=== PATIENT | female | born 2000 | race Native Hawaiian/Other Pacific Islander ===

== ENCOUNTER 2022-04-24 01:25 | Inpatient (IN) | payer OTHER, SELFPAY ==
[2022-04-23 23:58] VITALS: BP 136/75; PULSE 63
[2022-04-23 23:59] VITALS: TEMP 36.7
[2022-04-24] VITALS (49 sets, daily range): BP systolic 99–142; BP diastolic 53–86; PULSE 49–99; RESP 16; TEMP 36.4–36.9; O2SAT 91–100; BMI 24.3
--- NOTE | 2022-04-24 02:37 | PM.OBHPLI ---
OB - H&P: HPI Labor/Induction History of Present Illness Time Seen by Provider: 02:39 Date Seen: 04/24/22 Chief Complaint: The patient is a 21 year old 4 para 2 at 38w3d weeks gestation by 8 week ultrasound, who presents with contractions. Chief complaint: Maternity : 4 Para: 2 Narrative: Alla Craft is a 21 year old female who presents with contractions. Patient states that her contractions started last evening around 8pm. She arrived at labor and delivery a few hours later and was 4 cm. She was monitored and changed to 5 cm. Contractions are increasing in intensity. History of Present Dating criteria: based on 1st trimester US only care: good care Ultrasounds: normal 1st trimester US and normal mid trimester US Abnormal ultrasound findings: Normal ultrasound at 8 weeks 6 days for dating anatomy screen showed incomplete visualization of spine due to position. Remainder of the anatomic survey is normal. Unfortunately, repeat ultrasound was delayed and spine was never able to be evaluated fully. Placenta is anterior without evidence for placenta previa. Medical complications: musculoskeletal Narrative: Patient has reactive arthritis, on plaquenil Labs Blood type: A (+) positive Rubella: immune RPR/VDLR: nonreactive GBS status: negative HBsAG: negative Review of Systems Status of ROS: Reports: 10 or more systems reviewed and unremarkable except as noted in History and below Meds Home Medications and Allergies Home Medications Medication Instructions Recorded Confirmed Type ferrous sulfate 325 mg (65 mg mg PO 04/23/22 History iron) tablet,delayed release fluoxetine 20 mg capsule 60 mg PO DAILY 04/23/22 04/23/22 History hydroxychloroquine 200 mg tablet 200 mg PO DAILY 04/23/22 04/23/22 History (Plaquenil) vit no.95-ferrous 1 tab PO DAILY 04/23/22 04/23/22 History fumarate 28 mg-folic acid 800 mcg tablet () Allergies Allergy/AdvReac Type Severity Reaction Status Date / Time Cephalex Allergy Rash Uncoded 04/23/22 23:50 OB - H&P: Exam Physical Exam: Vital signs: Temp Pulse BP 98.1 F 69 109/64 04/23/22 23:59 04/24/22 02:00 04/24/22 02:00 Constitutional: Constitutional: no acute distress Comments: uncomfortable appearing with contractions Routine HEENT Exam: Head: Present atraumatic, normal inspection and normocephalic Routine Neck Exam: Neck: Present full ROM Routine Respiratory Exam: Respiratory: Present CTA bilaterally Routine Cardiovascular Exam: Cardiovascular: RRR, S1 and S2 Routine Abdominal Exam: Abdominal: Present normal bowel sounds Detailed Labor and Delivery Exam: Patient Gravid: yes Dilation (cm): 5 Comments: 5 cm per nursing, 0 station Routine Extremities Exam: Extremities: Present full ROM and normal inspection Routine Skin Exam: Present intact Routine Neurological Exam: Present alert and oriented X3 Routine Psychiatric Exam: Present normal affect OB - Problem Based A/P Additional Plan (1) Term : Status: Acute (2) Depression: Status: Acute Plan: Patient has been on prozac, doing well during this Plan Patient is admitted in active labor, Expectant management. GBS negative. History of vaginal delivery x 2. plans on unmedicated delivery. Delivery/Labor/Induction Plan Plan: expectant management
[2022-04-24 02:49] LABS: SARS PCR* Negative SARS-CoV-2 (Negative)
[2022-04-24] MEDS: LACTATED RINGERS 1000 ML 1,000 ML 999 ML IV ×2 (05:59→07:07)
[2022-04-24] MEDS: ONDANSETRON 2 MG/ML inj 4 MG IV ×2 (05:59→09:02)
--- NOTE | 2022-04-24 06:48 | PM.ANBPRC ---
[facility], [facility] Medical History (Updated 04/24/22 @ 02:52 by Paulina Landry MD) LM positive Depression Inflammatory arthritis Vaginal delivery Family History (Updated 04/24/22 @ 02:49 by Paulina Landry MD) Mother Lupus (systemic lupus erythematosus) Social History Smoking Status: Never smoker Meds Home Medications and Allergies Home Medications Medication Instructions Recorded Confirmed Type ferrous sulfate 325 mg (65 mg mg PO 04/23/22 History iron) tablet,delayed release fluoxetine 20 mg capsule 60 mg PO DAILY 04/23/22 04/23/22 History hydroxychloroquine 200 mg tablet 200 mg PO DAILY 04/23/22 04/23/22 History (Plaquenil) vit no.95-ferrous 1 tab PO DAILY 04/23/22 04/23/22 History fumarate 28 mg-folic acid 800 mcg tablet () Allergies Allergy/AdvReac Type Severity Reaction Status Date / Time Cephalex Allergy Rash Uncoded 04/23/22 23:50 Results Labs Labs: Laboratory Results - last 24 hr 04/24/22 01:40 SARS-CoV-2 (PCR) Negative SARS-CoV-2 Vital Signs Vital Signs: Last Vital Signs Temp 98.1 F 04/24/22 03:13 Pulse 55 L 04/24/22 06:47 Resp 16 04/24/22 03:13 BP 104/54 L 04/24/22 06:47 Pulse Ox 100 04/24/22 06:44 Anesthesia Procedures Intrathecal Patient Location: OB Start Time: 06:00 Stop Time: 07:00 Start Date: 04/24/22 Stop Date: 04/24/22 Reason for Block: primary anesthetic Patient Position: sitting Performed By: Eddi Salcido Preanesthetic Checklist: IV checked, risks and benefits discussed, timeout performed and anesthesia consent Prep: chlorhexidine gluconate Monitoring: blood pressure monitoring, environmental monitoring specialist, continuous pulse oximetry and heart rate Approach: midline Vertebral Space: lumbar (1-5) Needle Type: Pencan Injection Technique: single-shot Needle gauge: 25 Needle Length (cm): 10 cm Events: cerebrospinal fluid
--- NOTE | 2022-04-24 07:02 | PM.OBPNL ---
Subjective Time Seen by Provider: 07:02 Date Seen: 04/24/22 Objective Exam: Resting comfortably after ITN placement. Vital Signs: Last Vital Signs Temp 98.1 F 04/24/22 03:13 Pulse 55 L 04/24/22 07:01 Resp 16 04/24/22 03:13 BP 103/55 L 04/24/22 07:01 Pulse Ox 100 04/24/22 06:59 Pelvic Exam Dilation (cm): 8 Effacement (%): 80 Station: 0 Contractions Monitor mode: External Contraction pattern: Regular Contraction intensity: Moderate Assessment Assessment: active labor Station: 0 Status: Category l Heart Rate Baseline: 135 Jacqu[address] [employer] Variability: Moderate (6-25) Monitor Accelerations: Present Monitor Decelerations: None Plan Plan: Patent has had slow progression overnight. Doing well. Just received ITN and resting comfortably. Continue expectant management, consider AROM.
--- NOTE | 2022-04-24 07:40 | SUR.ANES ---
medications for ITN placed 04/24/22 at 0630 were 0.8 mg 0.75% marcaine with 20 mcg of fentanyl. CKochSIOBHANNA
[2022-04-24] MEDS: OXYTOCIN 30 unit/500 ML in NS 30 UNIT/500 ML BAG 300 UNIT IVPB (09:20)
--- NOTE | 2022-04-24 09:43 | PM.OBPRCVD ---
Procedure Delivery date: 04/24/22 Procedure Done: Global Procedure Details: Delivery monitor: external FHT Route of delivery: Laceration description: None Estimated blood loss (mL): 25 Anesthesia type: ITN Disposition: floor Complications: none Narrative: Patient was admitted evening of 04/23 with labor. Went from 4-5 cm in triage assessment. Patient progressed without any intervention steadily overnight. Active labor began at 0108 on 04/24. She used nitrous for pain control and then She received an ITN at 0641 with good pain control. She had SROM sometime in the hour after ITN placement with clear fluid. Patient became complete at 0740 on 04/24/22. Pushing started at 0748. Patient delivered a viable male infant at 0916 over intact perineum. Baby was delivered onto maternal abdomen. Cord was clamped x 2 after 30 seconds of delayed cord clamping and cut by Father of baby who was in attendance. Baby was stimulated and taken to warmer, please see resuscitation note for details. Pitocin was started after delivery of baby. Placenta delivered spontaneously at 0923. Evaluation of the perineum showed no significant laceration. Sponge count correct. QBL was 25 cc. Infant Gender: Male presentation: vertex Placental Delivery Description: Spontaneous Cord Description: 3 Vessels OB Vag Delivery Procedures Additional Procedures ECV: No Cook Catheter Insertion: No NST: No D&C: No Laceration Repair: No Tubal Ligation : No Other: No
[2022-04-24] MEDS: IBUPROFEN 600 MG TABLET PO ×2 (11:58→18:03)
[2022-04-24] MEDS: DOCUSATE SODIUM 100 MG CAPSULE PO (15:43)
[2022-04-24] MEDS: HYDROXYCHLOROQUINE 200 MG TABLET PO (15:43)
[2022-04-24] MEDS: FLUOXETINE HCL 20 MG CAPSULE PO (15:44)
[2022-04-24] MEDS: ACETAMINOPHEN 500 MG TABLET 1000 MG PO ×2 (15:45→21:34)
[2022-04-25] VITALS: BP 104/62; PULSE 73; RESP 16; TEMP 36.8; O2SAT 98
[2022-04-25] MEDS: IBUPROFEN 600 MG TABLET PO (00:19)
[2022-04-25 05:00] VITALS: BP 112/61; PULSE 69; RESP 16; TEMP 36.7
[2022-04-25 06:59] LABS: Hemoglobin* 9.7 gm/dL (12.0-16.0)
[2022-04-25] MEDS: HYDROXYCHLOROQUINE 200 MG TABLET PO (08:06)
[2022-04-25] MEDS: ACETAMINOPHEN 500 MG TABLET 1000 MG PO (08:07)
[2022-04-25] MEDS: FLUOXETINE HCL 20 MG CAPSULE PO (08:07)
[2022-04-25] MEDS: FERROUS SULFATE 325 MG TABLET PO (08:08)
[2022-04-25] MEDS: DOCUSATE SODIUM 100 MG CAPSULE PO (08:08)
[2022-04-25 08:30] VITALS: BP 100/63; PULSE 64; RESP 16; TEMP 36.7; O2SAT 98
--- NOTE | 2022-04-25 10:10 | PM.OBDSVD1 ---
DS: Providers Provider Date Seen: 04/25/22 Date of admission: 04/24/22 01:25 Primary care physician: Paulina Landry MD Admitting Clinician: Paulina Landry MD Attending Physician on discharge: Paulina Landry MD Date of Discharge: 04/25/22 Exam Const: Vital Signs, click to edit/add: Vital Signs - 24 hr 04/24/22 10:16 04/24/22 10:32 04/24/22 10:46 Temperature Pulse Rate 54 L 56 L 59 L Pulse Rate [Blood Pressure Cuff] Respiratory Rate Blood Pressure 135/72 128/75 128/80 Blood Pressure [Ri ght Arm] Pulse Oximetry Oxygen Delivery Me thod 04/24/22 11:01 04/24/22 11:16 04/24/22 13:32 Temperature Pulse Rate 56 L 56 L Pulse Rate [Blood Pressure Cuff] 67 Respiratory Rate 16 Blood Pressure 130/78 130/78 Blood Pressure [Ri ght Arm] 132/70 Pulse Oximetry Oxygen Delivery Me thod 04/24/22 10:16 04/24/22 10:31 04/24/22 10:46 Temperature Pulse Rate Pulse Rate [Blood Pressure Cuff] 54 L 56 L 59 L Respiratory Rate 16 16 16 Blood Pressure Blood Pressure [Ri ght Arm] 135/72 128/75 128/80 Pulse Oximetry Oxygen Delivery Me thod 04/24/22 11:01 04/24/22 11:16 04/24/22 16:20 Temperature 98.4 F 97.8 F Pulse Rate Pulse Rate [Blood Pressure Cuff] 56 L 56 L 79 Respiratory Rate 16 16 16 Blood Pressure Blood Pressure [Ri ght Arm] 130/78 130/78 99/63 Pulse Oximetry Oxygen Delivery Me thod Room Air 04/24/22 19:30 04/25/22 00:00 04/25/22 05:00 Temperature 98.1 F 98.2 F 98.1 F Pulse Rate Pulse Rate [Blood Pressure Cuff] 72 73 69 Respiratory Rate 16 16 16 Blood Pressure Blood Pressure [Ri ght Arm] 105/64 104/62 112/61 Pulse Oximetry 98 98 Oxygen Delivery Me thod Room Air Room Air Documenting provider has reviewed patient's vital signs: yes Common normals: no apparent distress General appearance: cooperative and comfortable Resp: Common normals: normal respiratory effort, no retractions, no use of accessory muscles and clear to auscultation bilaterally Auscultation: clear to auscultation bilaterally Cardio: Common normals: regular rate and regular rhythm Rate: regular rate Rhythm: regular rhythm Heart sounds: no murmurs GI: Common normals: Normal to inspection, nondistended, normoactive bowel sounds present : Uterus: 2/U and firm Lochia: scant Uterus palpation: uterus nontender Extremity: Common normals: normal to inspection and no pedal edema OB - DS: Summary Hospital Course Hospital Course: The patient is a 21 year old G 4 P 3 at 38 weeks, 3 days gestation that was admitted to the Center on 04/24/22 for PRIYANKA. She had an uncomplicated vaginal delivery. She delivered a viable male . She is bottle feeding. the patient has done well. Peripartum Data delivery method: Vaginal Laceration description: Vaginal - 2nd Degree Infant Gender: Male Infant Discharge Plan: Home Time Spent with Patient Time attestation: Total time spent providing and/or coordinating discharge services: Time spent: Less than 30 minutes Discharge Plan Discharge Disposition: Home, Self-Care Date of Admission: 04/24/22 01:25 Primary Care Provider: Paulina Landry Condition: Stable Anticipated Discharge Date/Time: 04/25/22 10:08 Discharge Medications: Continued fluoxetine 20 mg capsule 60 mg PO DAILY Label Comments: TAKE THREE CAPSULES BY MOUTH EVERY MORNING hydroxychloroquine [Plaquenil] 200 mg tablet 200 mg PO DAILY ferrous sulfate 325 mg (65 mg iron) tablet,delayed release (DR/EC) 325 mg PO DAILY Label Comments: TAKE ONE TABLET BY MOUTH ONCE DAILY WITH A MEAL. PNV cmb#95-ferrous fumarate-FA [] 28 mg iron- 800 mcg tablet 1 tab PO DAILY Discharge Orders: Discharge Order (Routine); Ordered 04/25/22 Ordered By: Robson Galicia Patient Education: Vaginal Delivery (DC) Additional Instructions: Nothing per vagina for 6 weeks Activity Level: Activity as Tolerated Discharge Diet: Regular Follow Up Appointments: Paulina Landry MD [Primary Care Provider] - (Schedule in 6 weeks) Forms: [facility] Info Inst[facility]
== END 2022-04-25 11:45 | disposition home or self-care (01) | DRG 560 ==
LOC: OB OUT 01:29 → OB 01:29
PROVIDERS: Admitting Provider Family Medicine; PCP Family Medicine; Visit Provider Family Medicine
DX: O99.344 Other mental disorders complicating childbirth (principal); F32.A Depression, unspecified; O70.1 Second degree perineal laceration during delivery; Z3A.38 38 weeks gestation of pregnancy; R76.0 Raised antibody titer; M06.4 Inflammatory polyarthropathy; Z37.0 Single live birth
CPT/HCPCS: 36415; 85018; 87635; 99213; A9270; J2405; J3010; J7120

== ENCOUNTER 2022-12-10 11:48 | Emergency (ER) | payer OTHER, SELFPAY ==
[2022-12-10 12:10] VITALS: BP 106/71; PULSE 67; RESP 16; TEMP 36.9; O2SAT 99
[2022-12-10] MEDS: ONDANSETRON ODT 4 MG TAB 8 MG PO (13:04)
[2022-12-10] MEDS: FAMOTIDINE 20 MG TABLET PO (13:05)
--- NOTE | 2022-12-10 13:07 | ED_ITS ---
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 She has been experiencing a couple of weeks of vague nausea and acid reflux and then 2 days of diarrhea and vomiting. Son has similar symptoms for the last 2 days as well. No fever. No blood in her stools, no blood in vomit. No significant history of alcohol use, does not smoke marijuana. She has not tried any medications to help with her symptoms. No history of acid reflux that has been known. She did tend to have nausea in her pregnancies. She reports that she uses Depo-Provera for contraception and is due for an injection soon but is certainly still up-to-date. Is not having any breakthrough bleeding. No trauma or injury. No abdominal pain. No gynecological changes. She is still urinating adequately and is not experiencing any dizziness. No hypotension or tachycardia noted in triage. Home medications are reviewed, Plaquenil, fluoxetine with no recent dose changes. Past medical history, surgical history reviewed. Prior obstetrical notes noted. ROS is notable for the GI symptoms as above only, otherwise denies times 12 systems. Related Data Home Medications Medication Instructions Recorded Confirmed ferrous sulfate 325 mg (65 mg 325 mg PO DAILY 04/23/22 12/10/22 iron) tablet,delayed release fluoxetine 20 mg capsule 60 mg PO DAILY 04/23/22 12/10/22 hydroxychloroquine 200 mg tablet 200 mg PO DAILY 04/23/22 12/10/22 (Plaquenil) vit no.95-ferrous 1 tab PO DAILY 04/23/22 04/23/22 fumarate 28 mg-folic acid 800 mcg tablet () Previous Rx's Medication Instructions Recorded famotidine 20 mg tablet 20 mg PO DAILY #20 tabs 12/10/22 ondansetron 4 mg disintegrating 4 mg PO Q6H PRN nausea and 12/10/22 tablet vomiting #10 tabs Allergies Allergy/AdvReac Type Severity Reaction Status Date / Time Cephalex Allergy Rash Uncoded 04/23/22 23:50 PFSH PFS Medical History Vaginal delivery ?O80 - Encounter for full-term uncomplicated delivery (ICD-10) Depression ?F32.A - Depression, unspecified (ICD-10) Inflammatory arthritis ?M19.90 - Unspecified osteoarthritis, unspecified site (ICD-10) LM positive ?R76.8 - Other specified abnormal immunological findings in serum (ICD-10) Family History Mother Lupus (systemic lupus erythematosus) Social History Smoking Status: Never smoker Exam Const: Vital Signs, click to edit/add: Vital Signs - 24 hr 12/10/22 12:10 Temperature 98.5 F Pulse Rate [Right Pulse Oximeter] 67 Respiratory Rate 16 Blood Pressure [Ri ght Upper Arm] 106/71 Pulse Oximetry 99 Oxygen Delivery Me thod Room Air Documenting provider has reviewed patient's vital signs: yes Common normals: no apparent distress General appearance: cooperative, comfortable and well kempt Other: Appears well-hydrated, well-nourished HENMT: Common normals: normocephalic Head and scalp: normocephalic Face and sinus: normal facial exam Mouth: oral and palatal mucosa normal Throat: posterior oropharynx normal Eye: Common normals: conjunctivae normal General eye: normal appearance of both eyes Conjunctiva: conjunctiva(e) normal Neck & C-Spine: Common normals: full ROM and no lymphadenopathy Resp: Common normals: normal respiratory effort, no use of accessory muscles and clear to auscultation bilaterally Effort & inspection: able to speak in complete sentences Auscultation: clear to auscultation bilaterally Cardio: Common normals: regular rate, regular rhythm, S1 normal heart sound, S2 normal heart sound and no murmurs Rate: regular rate Rhythm: regular rhythm Heart sounds: S1 normal and S2 normal GI: Common normals: Normal to inspection, nondistended, normoactive bowel sounds present, soft to palpation, non-tender, no hepatosplenomegaly and no masses Palpation: soft and no hepatosplenomegaly Psych: Appearance: well kempt Attitude: engaged Activity/motor behavior: appropriate eye contact Mood and affect: euthymic mood Insight: insight good Judgement: judgment good Skin: Common normals: no rashes or lesions noted General skin exam: no rashes or lesions noted Course Course Hospital Course: Son with similar gastroenteritis type symptoms. Suspect viral process. Abdominal exam is completely benign. No tachycardia or hypotension, no signs of dehydration. No reason suspect pancreatitis since there is no pain, no obstructive signs, gynecological signs or other worrisome features. I recommended a trial of both famotidine for a few weeks as she does have some ongoing symptoms and her suspicious for ongoing GERD. This would be especially common with her fluoxetine. But acutely will treat with Zofran, 1st dose will be given in ED. She may continue on this for the next couple of days as needed, push fluids. Alarm symptoms reviewed as indications to come back to ED. She w ill follow-up with the primary care doc if she is not getting better with her symptoms in a couple of weeks. Discussed Imodium if she continues to have any diarrhea. Vital Signs Vital signs: Initial Vital Signs Temperature 98.5 F 12/10/22 12:10 Temperature Source Temporal Artery Scan 12/10/22 12:10 Pulse Rate 67 12/10/22 12:10 Respiratory Rate 16 12/10/22 12:10 Blood Pressure 106/71 12/10/22 12:10 Blood Pressure Mean 82 12/10/22 12:10 Blood Pressure Position Sitting 12/10/22 12:10 Pulse Oximetry 99 12/10/22 12:10 Oxygen Delivery Method Room Air 12/10/22 12:10 Vital Signs Temperature 98.5 F 12/10/22 12:10 Pulse Rate 67 12/10/22 12:10 Respiratory Rate 16 12/10/22 12:10 Blood Pressure 106/71 12/10/22 12:10 Pulse Oximetry 99 12/10/22 12:10 Oxygen Delivery Method Room Air 12/10/22 12:10 Temperature 98.5 F 12/10/22 12:10 Pulse Rate 67 12/10/22 12:10 Respiratory Rate 16 12/10/22 12:10 Blood Pressure 106/71 12/10/22 12:10 Pulse Oximetry 99 12/10/22 12:10 Oxygen Delivery Method Room Air 12/10/22 12:10 Discharge Plan Discharge Clinical Impression: Gastroenteritis Patient Disposition: Home w/ Parent or Adult Condition: Stable Instructions: Gastroenteritis (DC) Additional Instructions: As we discussed, there are no signs that you are dehydrated, this is great news. Unfortunately if you keep having the vomiting and diarrhea, you can get dehydrated eventually. I have given you an anti nausea medicine known as Zofran. I will send an additional supply to your pharmacy. You may take this up to every 6 hours as needed. As we discussed, you may also use [id number] Imodium if you get more bouts of diarrhea but I would not take the Imodium as a preventative type medication. Based on your history that you have been struggling with some mild symptoms for a couple of weeks, I suspect you may also have some underlying gastric reflux. I would like for you to start on a stomach acid medicine known as famotidine for a couple of weeks and see how this improves her overall symptoms. I would follow up with her primary care doctor if it is not helping to discuss further options long-term. You also should address your updated control needs at your convenience as well. Activity Level: No Restrictions Discharge Diet: Regular Prescriptions: New famotidine 20 mg tablet 20 mg PO DAILY Qty: 20 0RF ondansetron 4 mg tablet,disintegrating 4 mg PO Q6H PRN (Reason: nausea and vomiting) Qty: 10 0RF No Action fluoxetine 20 mg capsule 60 mg PO DAILY Patient Comments: TAKE THREE CAPSULES BY MOUTH EVERY MORNING hydroxychloroquine [Plaquenil] 200 mg tablet 200 mg PO DAILY ferrous sulfate 325 mg (65 mg iron) tablet,delayed release (DR/EC) 325 mg PO DAILY Patient Comments: TAKE ONE TABLET BY MOUTH ONCE DAILY WITH A MEAL. PNV cmb#95-ferrous fumarate-FA [] 28 mg iron- 800 mcg tablet 1 tab PO DAILY Follow Up/Referrals: Paulina Landry MD [Primary Care Provider] - Stand Alone [facility]
== END 2022-12-10 13:15 | disposition home or self-care (01) ==
LOC: ED 12:59
PROVIDERS: Emergency Provider Family Medicine; PCP Family Medicine
DX: K52.9 Noninfective gastroenteritis and colitis, unspecified (principal)
CPT/HCPCS: 99283; A9270

== ENCOUNTER 2023-06-27 19:51 | Emergency (ER) | payer OTHER, SELFPAY ==
[2023-06-27 19:54] VITALS: BP 120/77; PULSE 76; RESP 16; TEMP 36.5; O2SAT 98; BMI 18.9
--- NOTE | 2023-06-27 20:08 | ED_ITS ---
HPI - General Adult General Date Seen: 06/27/23 <Ra Ricci MD - Last Filed: 06/28/23 00:15> Chief complaint: Psychiatric Problem/Disorder <Ra Ricci MD - Last Filed: 06/28/23 00:15> Stated complaint: Mental health <Ra Ricci MD - Last Filed: 06/28/23 00:15> Time Seen by Provider: 06/27/23 20:08 <Ra Ricci MD - Last Filed: 06/28/23 00:15> History of Present Illness HPI narrative: This is a 23-year-old female with a history of depression, also depression, who is . She struggled with depression since childhood. She notes that her depression is always gotten worse after she delivered her children, and she knows she has bad depression. As anticipated, after she delivered her 3rd child, last year (child is [id number] now) she had a significant deterioration in her depression. She was working with her primary care doctor for that. He she had been on 1 antidepressant but they put her on a 2nd antidepressant last spring. She felt like the combination meds was not helpful. She stopped them and was switched to a single agent last summer. She and her primary care doctor increased that dose to maximal but she was not getting any better. She gave up on meds and stop taking her medicine last November or December, about 5 or 6 months ago. She also saw a therapist for a few weeks last spring but did not find to be helpful so did not follow up. She has been experiencing fairly significant depression for the past several months. She has and he had only a, guilt, thoughts of wanting to . Lately she has also been thinking about self-harming. She has done some cutting in the past. She is also thinking about suicide in thinking about overdosing on pills. However she says she does not think she would actually ever do it because she knows she needs to be there as a mother for her children. She has not actually done anything to help herself yet. No clear recent trigger that his put her over the edge but she does endorse stress with her children, her , and her family. Tonight she was feeling so depressed, she knew she needs to do something before she would hurt herself, so she asked her father to bring her here to the ER. When I ask her why she came to the ER and what she was hoping to achieve, she says she thinks she probably needs to go to for inpatient therapy. She is interested in inpatient. <Ra Ricci MD - Last Filed: 06/28/23 00:15> Related Data Home medications: Home Medications Medication Instructions Recorded Confirmed ferrous sulfate 325 mg (65 mg 325 mg PO DAILY 04/23/22 06/27/23 iron) tablet,delayed release fluoxetine 20 mg capsule 60 mg PO DAILY 04/23/22 06/27/23 hydroxychloroquine 200 mg tablet 200 mg PO DAILY 04/23/22 06/27/23 (Plaquenil) vit no.95-ferrous 1 tab PO DAILY 04/23/22 06/27/23 fumarate 28 mg-folic acid 800 mcg tablet () metronidazole 500 mg tablet 500 mg PO BID 06/27/23 06/27/23 Previous Rx's Medication Instructions Recorded famotidine 20 mg tablet 20 mg PO DAILY #20 tabs 12/10/22 ondansetron 4 mg disintegrating 4 mg PO Q6H PRN nausea and 12/10/22 tablet vomiting #10 tabs escitalopram oxalate 10 mg tablet 10 mg PO DAILY #30 tabs 06/28/23 (Lexapro) <Ra Ricci MD - Last Filed: 06/28/23 00:15> Allergies/adverse reactions: Allergies Allergy/AdvReac Type Severity Reaction Status Date / Time Cephalex Allergy Rash Uncoded 04/23/22 23:50 <Ra Ricci MD - Last Filed: 06/28/23 00:15> [facility] Medical History: Medical History Vaginal delivery ?O80 - Encounter for full-term uncomplicated delivery (ICD-10) Depression ?F32.A - Depression, unspecified (ICD-10) Inflammatory arthritis ?M19.90 - Unspecified osteoarthritis, unspecified site (ICD-10) LM positive ?R76.8 - Other specified abnormal immunological findings in serum (ICD-10) <Ra Ricci MD - Last Filed: 06/28/23 00:15> Family History: Family History Mother Lupus (systemic lupus erythematosus) <Ra Ricci MD - Last Filed: 06/28/23 00:15> Social History: Social History Smoking Status: Never smoker How often do you have a drink containing alcohol: never AUDIT-C Alcohol total score: 0 Non-prescribed substance use: denies use <Ra Ricci MD - Last Filed: 06/28/23 00:15> Exam Narrative: Exam Narrative: Constitutional: Appears well-developed and well-nourished. Alert. Conversant. Non toxic. HENT: Head: Atraumatic. Nose: Nose normal. Mouth/Throat: Oral mucosa is clear and moist. no trismus. Pharynx normal. Tonsils symmetric. No tonsillar enlargement, erythema, or exudate. Eyes: Conjunctivae normal. EOM normal. Pupils equal, round, and reactive to ligh t. No scleral icterus. Neck: Normal range of motion. Neck supple. No tracheal deviation present. Cardiovascular: Normal rate, regular rhythm. No gallop. No friction rub. No murmur heard. Symmetric radial artery pulses Pulmonary/Chest: Effort normal. No stridor. No respiratory distress. No wheezes. No rales. No rhonchi . No tenderness. Abdominal: Soft. No distension. No mass. No tenderness. No rebound. No guarding. Musculoskeletal: RUE: Normal range of motion. No tenderness. No deformity LUE: Normal range of motion. No tenderness. No deformity RLE: Normal range of motion. No edema. No tenderness. No deformity LLE: Normal range of motion. No edema. No tenderness. No deformity Lymph: No cervical adenopathy. Neurological: Alert and oriented to person, place, and time. Normal strength. CN II-VII intact. No sensory deficit. GCS eye subscore is 4. GCS verbal subscore is 5. GCS motor subscore is 6. Normal coordination Skin: Very superficial scars on her left volar forearm from old cutting but no signs of any recent or acute guarding. Skin is warm and dry. No rash noted. No pallor. Normal capillary refill. Psychiatric: Flat affect. Very quiet voice. Somewhat slow speech. Looks down. At times tearful. Endorses depression, guilt, low energy. She is endorsing thoughts of self-harm including cutting and possibly suicide. She says she has thought about taking pills, since that would be easiest, has not actually gotten any pills to take. Says she has not overdosed on anything. She tried self medicating with marijuana gummies a few weeks ago but they only temporarily helped. She is not using them regularly and has not taken any for a couple of weeks. No other drugs or alcohol. She is confident she is not because she is currently menstruating. Her father is at her bedside. He is supportive and calm, however he is not fluid only bilingual so although he understands [place], he is not providing any extra history. <Ra Ricci MD - Last Filed: 06/28/23 00:15> Const: Vital Signs, click to edit/add: Vital Signs - 24 hr 06/27/23 19:54 06/27/23 23:00 06/28/23 03:00 Temperature 97.7 F 98.1 F Pulse Rate [Pulse Oximeter] 76 68 Respiratory Rate 16 16 15 Blood Pressure [Ri ght Upper Arm] 120/77 126/81 Pulse Oximetry 98 98 Oxygen Delivery Me thod Room Air Room Air 06/28/23 05:00 06/28/23 08:07 06/28/23 11:17 Temperature 97.6 F Pulse Rate [Pulse Oximeter] 81 68 Respiratory Rate 16 16 18 Blood Pressure [Ri ght Upper Arm] 111/75 125/68 Pulse Oximetry [facility] <Ra [facility] MD - Last Filed: 06/28/23 00:15> Vital Signs, click to edit/add: Vital Signs - 24 hr 06/27/23 19:54 06/27/23 23:00 06/28/23 03:00 Temperature 97.7 F 98.1 F Pulse Rate [Pulse Oximeter] 76 68 Respiratory Rate 16 16 15 Blood Pressure [Ri ght Upper Arm] 120/77 126/81 Pulse Oximetry 98 98 Oxygen Delivery Me thod Room Air Room Air 06/28/23 05:00 06/28/23 08:07 06/28/23 11:17 Temperature 97.6 F Pulse Rate [Pulse Oximeter] 81 68 Respiratory Rate 16 16 18 Blood Pressure [Ri ght Upper Arm] 111/75 125/68 Pulse Oximetry 98 Oxygen Delivery Me thod Room Air <Tal Torres MD - Last Filed: 07/01/23 15:49> Vital Signs, click to edit/add: Vital Signs - 24 hr 06/27/23 19:54 06/27/23 23:00 06/28/23 03:00 Temperature 97.7 F 98.1 F Pulse Rate [Pulse Oximeter] 76 68 Respiratory Rate 16 16 15 Blood Pressure [Ri ght Upper Arm] 120/77 126/81 Pulse Oximetry 98 98 Oxygen Delivery Me thod Room Air Room Air 06/28/23 05:00 06/28/23 08:07 06/28/23 11:17 Temperature 97.6 F Pulse Rate [Pulse Oximeter] 81 68 Respiratory Rate 16 16 18 Blood Pressure [Ri ght Upper Arm] 111/75 125/68 Pulse Oximetry 98 Oxygen Delivery Me thod Room Air <Walter Rodrigez MD - Last Filed: 06/28/23 11:31> Course Reevaluation(s) Time of Reevaluation #1: 00:12 <Tal Torres MD - Last Filed: 07/01/23 15:49> Reevaluation #1: Patient accepted in sign-out. Please see Dr. Ricci's note for complete history and physical. Briefly a 23-year-old female with history of depression and depression who presents with worsening depressive symptoms in the past year since she had a baby. Vague suicide ideation without a plan. Behavioral Health valuation is been done and waiting for inpatient placement. Patient is voluntary not holdable. <Tal Torres MD - Last Filed: 07/01/23 15:49> Vital Signs Vital signs: Initial Vital Signs Temperature 97.7 F 06/27/23 19:54 Temperature Source Temporal Artery Scan 06/27/23 19:54 Pulse Rate 76 06/27/23 19:54 Respiratory Rate 16 06/27/23 19:54 Blood Pressure 120/77 06/27/23 19:54 Blood Pressure Mean 91 06/27/23 19:54 Blood Pressure Position Sitting 06/27/23 19:54 Pulse Oximetry 98 06/27/23 19:54 Oxygen Delivery Method Room Air 06/27/23 19:54 Vital Signs Temperature 97.7 F 06/27/23 19:54 Pulse Rate 76 06/27/23 19:54 Respiratory Rate 16 06/27/23 19:54 Blood Pressure 120/77 06/27/23 19:54 Pulse Oximetry 98 06/27/23 19:54 Oxygen Delivery Method Room Air 06/27/23 19:54 Temperature 97.6 F 06/28/23 08:07 Pulse Rate 68 06/28/23 11:17 Respiratory Rate 18 06/28/23 11:17 Blood Pressure 125/68 06/28/23 11:17 Pulse Oximetry 98 06/28/23 08:07 Oxygen Delivery Method Room Air 06/28/23 08:07 <Ra Ricci MD - Last Filed: 06/28/23 00:15> Initial Vital Signs Temperature 97.7 F 06/27/23 19:54 Temperature Source Temporal Artery Scan 06/27/23 19:54 Pulse Rate 76 06/27/23 19:54 Respiratory Rate 16 06/27/23 19:54 Blood Pressure 120/77 06/27/23 19:54 Blood Pressure Mean 91 06/27/23 19:54 Blood Pressure Position Sitting 06/27/23 19:54 Pulse Oximetry 98 06/27/23 19:54 Oxygen Delivery Method Room Air 06/27/23 19:54 Vital Signs Temperature 97.7 F 06/27/23 19:54 Pulse Rate 76 06/27/23 19:54 Respiratory Rate 16 06/27/23 19:54 Blood Pressure 120/77 06/27/23 19:54 Pulse Oximetry 98 06/27/23 19:54 Oxygen Delivery Method Room Air 06/27/23 19:54 Temperature 97.6 F 06/28/23 08:07 Pulse Rate 68 06/28/23 11:17 Respiratory Rate 18 06/28/23 11:17 Blood Pressure 125/68 06/28/23 11:17 Pulse Oximetry 98 06/28/23 08:07 Oxygen Delivery Method Room Air 06/28/23 08:07 <Tal Torres MD - Last Filed: 07/01/23 15:49> Initial Vital Signs Temperature 97.7 F 06/27/23 19:54 Temperature Source Temporal Artery Scan 06/27/23 19:54 Pulse Rate 76 06/27/23 19:54 Respiratory Rate 16 06/27/23 19:54 Blood Pressure 120/77 06/27/23 19:54 Blood Pressure Mean 91 06/27/23 19:54 Blood Pressure Position Sitting 06/27/23 19:54 Pulse Oximetry 98 06/27/23 19:54 Oxygen Delivery Method Room Air 06/27/23 19:54 Vital Signs Temperature 97.7 F 06/27/23 19:54 Pulse Rate 76 06/27/23 19:54 Respiratory Rate 16 06/27/23 19:54 Blood Pressure 120/77 06/27/23 19:54 Pulse Oximetry 98 06/27/23 19:54 Oxygen Delivery Method Room Air 06/27/23 19:54 Temperature 97.6 F 06/28/23 08:07 Pulse Rate 68 06/28/23 11:17 Respiratory Rate 18 06/28/23 11:17 Blood Pressure 125/68 06/28/23 11:17 Pulse Oximetry 98 06/28/23 08:07 Oxygen Delivery Method Room Air 06/28/23 08:07 <Walter Rodrigez MD - Last Filed: 06/28/23 11:31> Medical Decision Making MDM Narrative Medical decision making narrative: 23-year-old female with a history of depression and depression here in the ER today for evaluation of depression, suicidal thoughts, and thoughts of self-harm. She has been battling with depression for years and in particularly since she delivered her most recent baby, 13 months ago. She has stopped all of her outpatient meds because she feels like they were futile and has not had any treatment now for about 6 months. She has been increasingly depressed and thinking about suicide lately and finally felt she needed help tonight so she asked her family to come in. She is down and depressed and at times tearful. She clearly needs help. When we talk about suicidality, she says she has thought about taking pills but says she would never do it because she needs to stay life for children. I believe her. At this point I do not think she poses an active risk of suicide, and therefore is not holdable. However she is voluntarily seeking an inpatient mental for admission I think she does meet criteria based on severity of illness for a voluntary inpatient stay. She was seen by DEC. They agree that she meets criteria for inpatient hospitalization given severity of illness, failure of outpatient treatment. They agree that at this point she is not actively suicidal or with the plan and not posing an imminent threat to herself or others. She is not holdable. However she certainly needs care and meets criteria for a voluntary inpatient admission. Laboratory workup for medical clearance is normal and reassuring. She is not having any symptoms of viral URI. I have ordered a COVID swab to assess for clearance as required by inpatient facilities. COVID Negative. Bowel she will be evaluated by DEC. Discussed with my oncoming partner, doctor christopher. He will follow-up on the results and recommendations of DEC. <Ra Ricci MD - Last Filed: 06/28/23 00:15> 23-year-old female with a history of depression and depression here in the ER today for evaluation of depression, suicidal thoughts, and thoughts of self-harm. She has been battling with depression for years and in particularly since she delivered her most recent baby, 13 months ago. She has stopped all of her outpatient meds because she feels like they were futile and has not had any treatment now for about 6 months. She has been increasingly depressed and thinking about suicide lately and finally felt she needed help tonight so she asked her family to come in. She is down and depressed and at times tearful. She clearly needs help. When we talk about suicidality, she says she has thought about taking pills but says she would never do it because she needs to stay life for children. I believe her. At this point I do not think she poses an active risk of suicide, and therefore is not holdable. However she is voluntarily seeking an inpatient men osiel for admission I think she does meet criteria based on severity of illness for a voluntary inpatient stay. She was seen by DEC. They agree that she meets criteria for inpatient hospitalization given severity of illness, failure of outpatient treatment. They agree that at this point she is not actively suicidal or with the plan and not posing an imminent threat to herself or others. She is not holdable. However she certainly needs care and meets criteria for a voluntary inpatient admission. Laboratory workup for medical clearance is normal and reassuring. She is not having any symptoms of viral URI. I have ordered a COVID swab to assess for clearance as required by inpatient facilities. COVID Negative. Bowel she will be evaluated by DEC. Discussed with my oncoming partner, doctor white. He will follow-up on the results and recommendations of DEC. This patient has been here overnight because of depression and some suicidal thoughts. She does not have any specific plan in his initially opened to inpatient evaluation and treatment. She has waited overnight for something to open but yet there are no beds available. The patient is stating now that she feels okay to return home to take care of her kids. I ordered a reassessment with tele health mental assessment and all are in agreement that she is okay to return home. The patient does not report any plan to harm herself. She is not currently taking any antidepressant medications. I asked her if she is interested in restarting something and she is agreeable to this. A prescription for Lexapro is provided. Arrangements for follow-up are made by the tele health sr solutions consultant including an outpatient day program. <Walter Rodrigez MD - Last Filed: 06/28/23 11:31> Lab Data Labs: Lab Results 06/27/23 06/27/23 06/27/23 Range/Units 20:12 20:24 22:39 WBC 7.12 (4.50-11.00) K/uL RBC 4.76 (4.00-5.20) m/uL Hgb 14.1 (12.0-16.0) gm/dL Hct 43.1 (33.0-51.0) % MCV 91 (80-100) fL MCH 30 (26-34) pg MCHC 33 (32-36) gm/dL RDW Coeff of Prem 12.8 (11.5-15.5) % Plt Count 175 (140-440) K/uL Neut % (Auto) 65.4 (42.0-72.0) % Lymph % (Auto) 29.2 (20-44) % [place] % (Auto) 4.4 (0.0-11.0) % Eos % (Auto) 0.7 (0.0-7.0) % Baso % (Auto) 0.3 (0.0-3.0) % Neut # (Auto) 4.66 (1.7-7.0) K/uL Lymph # (Auto) 2.08 (0.90-2.90) K/uL [place] # (Auto) 0.30 (0.00-0.90) K/UL Eos # (Auto) 0.05 (0.00-0.50) K/uL Baso # (Auto) 0.02 (0.00-0.30) K/uL Abs Immat Gran (auto) 0.00 (0.00-0.30) K/uL Imm/Tot Granulo (auto) 0.0 % Sodium 139 (135-149) mmol/L Potassium 4.2 (3.6-5.1) mmol/L Chloride 105 (96-114) mmol/L Carbon Dioxide 25 (20-32) mmol/L Anion Gap 9 (7-15) mEq/L BUN 12 (5-24) mg/dL Creatinine 0.6 (0.5-1.5) mg/dL Estimated Creat Clear 105.31 Estimated GFR 130 ml/min Glucose 90 (60-115) mg/dL Calcium 9.3 (8.4-10.6) mg/dL Total Bilirubin 0.7 (0.1-1.5) mg/dL AST 24 (12-35) U/L ALT 20 (4-35) U/L Alkaline Phosphatase 47 (40-150) U/L Total Protein 8.7 H (6.0-8.3) g/dL Albumin 5.1 H (3.3-5.0) g/dL Urine Color Yellow (Yellow) Urine Appearance Slightly Cloudy A (Clear) Urine pH 6.0 (5.0-8.5) Ur Specific [place] >= 1.030 (1.000-1.030) Urine Protein 1+ A (Negative) Urine Glucose (UA) Negative (Negative) Urine Ketones 1+ A (Negative) Urine Blood 1+ A (Negative) Urine Nitrite Negative (Negative) Urine Bilirubin Negative (Negative) Urine Urobilinogen 0.2 (0.2-1.0) Ur Leukocyte Esterase Negative (Negative) Urine RBC 0-2 (0-2) Urine WBC 2-5 (0-5) Ur Squamous Epith Cells Few (None-Few) Urine Bacteria Few A (None) Urine HCG, Qual Negative (Negative) Salicylates < 1.0 L (1.0-10) mg/dL Urine Opiates Screen Negative (Negative) Ur Oxycodone Screen Negative (Negative) Urine Methadone Screen Negative (Negative) Acetaminophen < 10.0 L (10.0-30.0) ug/mL Ur Barbiturates Screen Negative (Negative) U Tricyclic Antidepress Negative (Negative) Ur Phencyclidine Scrn Negative (Negative) Ur Amphetamines Screen Negative (Negative) U Methamphetamines Scrn Negative (Negative) U Benzodiazepines Scrn Negative (Negative) Urine Cocaine Screen Negative (Negative) U Marijuana (THC) Screen Negative (Negative) Ur Drug Screen Comment See Note Ethyl Alcohol < 0.01 L (0.01-0.03) % SARS-CoV-2 (PCR) Negative SARS-CoV-2 (Negative) <Ra Ricci MD - Last Filed: 06/28/23 00:15> Lab Results 06/27/23 06/27/23 06/27/23 Range/Units 20:12 20:24 22:39 WBC 7.12 (4.50-11.00) K/uL RBC 4.76 (4.00-5.20) m/uL Hgb 14.1 (12.0-16.0) gm/dL Hct 43.1 (33.0-51.0) % MCV 91 (80-100) fL MCH 30 (26-34) pg MCHC 33 (32-36) gm/dL RDW Coeff of Prem 12.8 (11.5-15.5) % Plt Count 175 (140-440) K/uL Neut % (Auto) 65.4 (42.0-72.0) % Lymph % (Auto) 29.2 (20-44) % [place] % (Auto) 4.4 (0.0-11.0) % Eos % (Auto) 0.7 (0.0-7.0) % Baso % (Auto) 0.3 (0.0-3.0) % Neut # (Auto) 4.66 (1.7-7.0) K/uL Lymph # (Auto) 2.08 (0.90-2.90) K/uL [place] # (Auto) 0.30 (0.00-0.90) K/UL Eos # (Auto) 0.05 (0.00-0.50) K/uL Baso # (Auto) 0.02 (0.00-0.30) K/uL Abs Immat Gran (auto) 0.00 (0.00-0.30) K/uL Imm/Tot Granulo (auto) 0.0 % Sodium 139 (135-149) mmol/L Potassium 4.2 (3.6-5.1) mmol/L Chloride 105 (96-114) mmol/L Carbon Dioxide 25 (20-32) mmol/L Anion Gap 9 (7-15) mEq/L BUN 12 (5-24) mg/dL Creatinine 0.6 (0.5-1.5) mg/dL Estimated Creat Clear 105.31 Estimated GFR 130 ml/min Glucose 90 (60-115) mg/dL Calcium 9.3 (8.4-10.6) mg/dL Total Bilirubin 0.7 (0.1-1.5) mg/dL AST 24 (12-35) U/L ALT 20 (4-35) U/L Alkaline Phosphatase 47 (40-150) U/L Total Protein 8.7 H (6.0-8.3) g/dL Albumin 5.1 H (3.3-5.0) g/dL Urine Color Yellow (Yellow) Urine Appearance Slightly Cloudy A (Clear) Urine pH 6.0 (5.0-8.5) Ur Specific [place] >= 1.030 (1.000-1.030) Urine Protein 1+ A (Negative) Urine Glucose (UA) Negative (Negative) Urine Ketones 1+ A (Negative) Urine Blood 1+ A (Negative) Urine Nitrite Negative (Negative) Urine Bilirubin Negative (Negative) Urine Urobilinogen 0.2 (0.2-1.0) Ur Leukocyte Esterase Negative (Negative) Urine RBC 0-2 (0-2) Urine WBC 2-5 (0-5) Ur Squamous Epith Cells Few (None-Few) Urine Bacteria Few A (None) Urine HCG, Qual Negative (Negative) Salicylates < 1.0 L (1.0-10) mg/dL Urine Opiates Screen Negative (Negative) Ur Oxycodone Screen Negative (Negative) Urine Methadone Screen Negative (Negative) Acetaminophen < 10.0 L (10.0-30.0) ug/mL Ur Barbiturates Screen Negative (Negative) U Tricyclic Antidepress Negative (Negative) Ur Phencyclidine Scrn Negative (Negative) Ur Amphetamines Screen Negative (Negative) U Methamphetamines Scrn Negative (Negative) U Benzodiazepines Scrn Negative (Negative) Urine Cocaine Screen Negative (Negative) U Marijuana (THC) Screen Negative (Negative) Ur Drug Screen Comment See Note Ethyl Alcohol < 0.01 L (0.01-0.03) % SARS-CoV-2 (PCR) Negative SARS-CoV-2 (Negative) <Tal Torres MD - Last Filed: 07/01/23 15:49> Lab Results 06/27/23 06/27/23 06/27/23 Range/Units 20:12 20:24 22:39 WBC 7.12 (4.50-11.00) K/uL RBC 4.76 (4.00-5.20) m/uL Hgb 14.1 (12.0-16.0) gm/dL Hct 43.1 (33.0-51.0) % MCV 91 (80-100) fL MCH 30 (26-34) pg MCHC 33 (32-36) gm/dL RDW Coeff of Prem 12.8 (11.5-15.5) % Plt Count 175 (140-440) K/uL Neut % (Auto) 65.4 (42.0-72.0) % Lymph % (Auto) 29.2 (20-44) % [place] % (Auto) 4.4 (0.0-11.0) % Eos % (Auto) 0.7 (0.0-7.0) % Baso % (Auto) 0.3 (0.0-3.0) % Neut # (Auto) 4.66 (1.7-7.0) K/uL Lymph # (Auto) 2.08 (0.90-2.90) K/uL [place] # (Auto) 0.30 (0.00-0.90) K/UL Eos # (Auto) 0.05 (0.00-0.50) K/uL Baso # (Auto) 0.02 (0.00-0.30) K/uL Abs Immat Gran (auto) 0.00 (0.00-0.30) K/uL Imm/Tot Granulo (auto) 0.0 % Sodium 139 (135-149) mmol/L Potassium 4.2 (3.6-5.1) mmol/L Chloride 105 (96-114) mmol/L Carbon Dioxide 25 (20-32) mmol/L Anion Gap 9 (7-15) mEq/L BUN 12 (5-24) mg/dL Creatinine 0.6 (0.5-1.5) mg/dL Estimated Creat Clear 105.31 Estimated GFR 130 ml/min Glucose 90 (60-115) mg/dL Calcium 9.3 (8.4-10.6) mg/dL Total Bilirubin 0.7 (0.1-1.5) mg/dL AST 24 (12-35) U/L ALT 20 (4-35) U/L Alkaline Phosphatase 47 (40-150) U/L Total Protein 8.7 H (6.0-8.3) g/dL Albumin 5.1 H (3.3-5.0) g/dL Urine Color Yellow (Yellow) Urine Appearance Slightly Cloudy A (Clear) Urine pH 6.0 (5.0-8.5) Ur Specific [place] >= 1.030 (1.000-1.030) Urine Protein 1+ A (Negative) Urine Glucose (UA) Negative (Negative) Urine Ketones 1+ A (Negative) Urine Blood 1+ A (Negative) Urine Nitrite Negative (Negative) Urine Bilirubin Negative (Negative) Urine Urobilinogen 0.2 (0.2-1.0) Ur Leukocyte Esterase Negative (Negative) Urine RBC 0-2 (0-2) Urine WBC 2-5 (0-5) Ur Squamous Epith Cells Few (None-Few) Urine Bacteria Few A (None) Urine HCG, Qual Negative (Negative) Salicylates < 1.0 L (1.0-10) mg/dL Urine Opiates Screen Negative (Negative) Ur Oxycodone Screen Negative (Negative) Urine Methadone Screen Negative (Negative) Acetaminophen < 10.0 L (10.0-30.0) ug/mL Ur Barbiturates Screen Negative (Negative) U Tricyclic Antidepress Negative (Negative) Ur Phencyclidine Scrn Negative (Negative) Ur Amphetamines Screen Negative (Negative) U Methamphetamines Scrn Negative (Negative) U Benzodiazepines Scrn Negative (Negative) Urine Cocaine Screen Negative (Negative) U Marijuana (THC) Screen Negative (Negative) Ur Drug Screen Comment See Note Ethyl Alcohol < 0.01 L (0.01-0.03) % SARS-CoV-2 (PCR) Negative SARS-CoV-2 (Negative) <Walter Rodrigez MD - Last Filed: 06/28/23 11:31> Discharge Plan Discharge Clinical Impression: Suicidal thoughts, Depression <Ra Ricci MD - Last Filed: 06/28/23 00:15> Patient Disposition: Home, Self-Care <Ra Ricci MD - Last Filed: 06/28/23 00:15> Condition: Stable <Ra Ricci MD - Last Filed: 06/28/23 00:15> Instructions: Suicide Prevention (ED) <Ra Ricci MD - Last Filed: 06/28/23 00:15> Additional Instructions: Take medication as prescribed. Follow up with MD in 2-3 weeks for reassessment. Return if worsening. <Ra Ricci MD - Last Filed: 06/28/23 00:15> Prescriptions: New escitalopram oxalate [Lexapro] 10 mg tablet 10 mg PO DAILY Qty: 30 2RF No Action fluoxetine 20 mg capsule 60 mg PO DAILY Hold Instructions: Doctor's Order Patient Comments: TAKE THREE CAPSULES BY MOUTH EVERY MORNING hydroxychloroquine [Plaquenil] 200 mg tablet 200 mg PO DAILY ferrous sulfate 325 mg (65 mg iron) tablet,delayed release (DR/EC) 325 mg PO DAILY Hold Instructions: Doctor's Order Patient Comments: TAKE ONE TABLET BY MOUTH ONCE DAILY WITH A MEAL. [facility] [id number]-ferrous fumarate-FA [] 28 mg iron- 800 mcg tablet 1 tab PO DAILY Hold Instructions: Doctor's Order famotidine 20 mg tablet 20 mg PO DAILY Qty: 20 0RF Hold Instructions: Doctor's Order ondansetron 4 mg tablet,disintegrating 4 mg PO Q6H PRN (Reason: nausea and vomiting) Qty: 10 0RF Hold Instructions: Doctor's Order metronidazole 500 mg tablet 500 mg PO BID <Ra Ricci MD - Last Filed: 06/28/23 00:15> Follow Up/Referrals: Paulina Landry MD [Primary Care Provider] - <Ra Ricci MD - Last Filed: 06/28/23 00:15> Stand Alone Forms: [employer] Info Instructions <Ra Ricci MD - Last Filed: 06/28/23 00:15>
[2023-06-27 20:30] LABS: Basophils Absolute Auto 0.02 K/uL (0.00-0.30); Basophils Percent Auto 0.3 % (0.0-3.0); Eosinophils Absolute Auto 0.05 K/uL (0.00-0.50); Eosinophils Percent Auto 0.7 % (0.0-7.0); Hematocrit 43.1 % (33.0-51.0); Hemoglobin* 14.1 gm/dL (12.0-16.0); Lymphocytes Absolute Auto 2.08 K/uL (0.90-2.90); Lymphocytes Percent Auto 29.2 % (20-44); Mean Corpuscular HGB Conc 33 gm/dL (32-36); Mean Corpuscular Hemoglobin 30 pg (26-34); Mean Corpuscular Volume 91 fL (80-100); Monocytes Percent Auto 4.4 % (0.0-11.0); Neutrophils Absolute Auto 4.66 K/uL (1.7-7.0); Neutrophils Percent Auto 65.4 % (42.0-72.0); Platelet Count* 175 K/uL (140-440); RDW Coefficient of Variation % 12.8 % (11.5-15.5); Red Blood Count 4.76 m/uL (4.00-5.20); White Blood Count* 7.12 K/uL (4.50-11.00)
[2023-06-27 20:31] LABS: Slide Review Reflex No
[2023-06-27 20:32] LABS: Appearance Urine Slightly Cloudy (Clear); Bilirubin Urine Negative (Negative); Blood Urine 1+ (Negative); Color Urine Yellow (Yellow); Glucose Urine Negative (Negative); Ketones Urine 1+ (Negative); Leukocyte Esterase Urine Negative (Negative); Nitrite Urine Negative (Negative); Protein Urine 1+ (Negative); Specific Gravity Urine >= 1.030 (1.000-1.030); Urobilinogen Urine 0.2 (0.2-1.0)
[2023-06-27 20:39] LABS: Amphetamine Screen Urine Negative (Negative); Barbiturate Screen Urine Negative (Negative); Benzodiazepines Screen Urine Negative (Negative); Cannabinoid Screen Urine Negative (Negative); Cocaine Screen Urine Negative (Negative); Methadone Screen Urine Negative (Negative); Methamphetamines Screen Urine Negative (Negative); Opiate Screen Urine Negative (Negative); Oxycodone Screen Urine Negative (Negative); Phencyclidine Screen Urine Negative (Negative); Tricyclic Antidepressant Urine Negative (Negative)
[2023-06-27 20:42] LABS: Bacteria Urine Few; RBC Urine 0-2 (0-2); Squamous Epithelial Cell Urine Few (None-Few); Ur HCG Qualitative* Negative (Negative)
[2023-06-27 20:47] LABS: Albumin* 5.1 g/dL (3.3-5.0); Chloride* 105 mmol/L (96-114); Sodium* 139 mmol/L (135-149)
[2023-06-27 20:48] LABS: Potassium* 4.2 mmol/L (3.6-5.1)
[2023-06-27 20:49] LABS: Bilirubin Total* 0.7 mg/dL (0.1-1.5); Creatinine* 0.6 mg/dL (0.5-1.5); Est. Creatinine Clearance* 105.31; Estimated Glomerular Filt Rate 130 ml/min
[2023-06-27 20:50] LABS: Alanine Aminotransferase* 20 U/L (4-35); Alkaline Phosphatase* 47 U/L (40-150); Anion Gap 9 mEq/L (7-15); Aspartate Amino Transferase* 24 U/L (12-35); Blood Urea Nitrogen* 12 mg/dL (5-24); Calcium* 9.3 mg/dL (8.4-10.6); Carbon Dioxide* 25 mmol/L (20-32); Glucose* 90 mg/dL (60-115); Total Protein* 8.7 g/dL (6.0-8.3)
[2023-06-27 20:52] LABS: Acetaminophen* < 10.0 ug/mL (10.0-30.0); Ethanol* < 0.01 % (0.01-0.03); Salicylate* < 1.0 mg/dL (1.0-10)
--- NOTE | 2023-06-27 22:52 | ED.NURSE ---
dec radha signed and faxed back to dec.
[2023-06-27 23:00] VITALS: BP 126/81; PULSE 68; RESP 16; TEMP 36.7; O2SAT 98
[2023-06-27 23:14] LABS: SARS PCR* Negative SARS-CoV-2 (Negative)
--- NOTE | 2023-06-28 00:41 | ED.NURSE ---
pt requested food, sandwich and soda given, pt states that is enough for now
[2023-06-28 03:00] VITALS: RESP 15
[2023-06-28 05:00] VITALS: RESP 16
--- NOTE | 2023-06-28 06:49 | ED.NURSE ---
pt pleasant and cooperative throughout shift. pt up to bathroom ind. denies any further needs, pt appears to be sleeping throughout night
[2023-06-28 08:07] VITALS: BP 111/75; PULSE 81; RESP 16; TEMP 36.4; O2SAT 98
--- NOTE | 2023-06-28 10:21 | ED.NURSE ---
Patient placed call light on. She states that due to concern for her sick family she feels that she is needed at home and would like to discharge. This was communicated to Dr. Rodrigez who requests that an additional DEC assessment be done. Patient is currently participating in telehealth assessment.
[2023-06-28 11:17] VITALS: BP 125/68; PULSE 68; RESP 18
== END 2023-06-28 12:28 | disposition home or self-care (01) ==
PROVIDERS: Emergency Medicine; Emergency Provider Family Medicine; PCP Family Medicine
DX: R45.851 Suicidal ideations (principal); F32.A Depression, unspecified
CPT/HCPCS: 36415; 80053; 80143; 80179; 80306; 81001; 81025; 82077; 85025; 87086; 87635; 99284; 99285